=== PATIENT | female | born 1990 | race Hispanic/Latino ===

== ENCOUNTER 2024-10-04 05:21 | Emergency (ER) | payer SELFPAY ==
[~2024-10-04] VITALS: Ht 160 cm; Wt 99.8 kg
[2024-10-04 06:03] LABS: BASOPHILS # (AUTO) 0.01 K/uL (0.00-0.20); BASOPHILS % (AUTO) 0.1 % (0.0-5.0); EOSINOPHILS # (AUTO) 0.08 K/uL (0.00-0.70); EOSINOPHILS % (AUTO) 0.9 % (0.0-8.0); HEMATOCRIT 37.9 % (36-48); IMMATURE GRANULOCYTE ABSOLUTE 0.03 K/uL (0-1); LYMPHOCYTES # (AUTO) 1.8 K/uL (1.0-4.8); LYMPHOCYTES % (AUTO) 21.4 % (21.0-51.0); MEAN CORPUSCULAR HEMOGLOBIN 30.6 pg (27.0-33.0); MEAN CORPUSCULAR HGB CONC 36.1 g/dL (32.0-36.0); MEAN CORPUSCULAR VOLUME 84.6 fL (79-99); MONOCYTES # (AUTO) 0.4 K/uL (0.1-1.0); MONOCYTES % (AUTO) 4.4 % (3.0-13.0); NEUTROPHILS # (AUTO) 6.2 K/uL (1.8-7.7); NEUTROPHILS % (AUTO) 72.9 % (40.0-77.0); PLATELET COUNT (AUTO) 187 K/uL (130-400); RED BLOOD CELL COUNT(AUTO) 4.48 MIL/uL (4.00-5.50); RED CELL DISTRIBUTION WIDTH 12.6 % (11.0-15.5); WHITE BLOOD COUNT (AUTO) 8.6 K/uL (4.8-10.8)
--- NOTE | 2024-10-04 06:15 | ERN ---
General Chief Complaint: Chest Pain Stated Complaint: CHILLS; SOB, CHEST PAIN Time Seen by MD: 06:12 Source: patient History of Present Illness Initial Comments Patient reports a broad number of chief complaints the main one being chest tightness difficulty breathing and feeling cold. She has also had emesis x2 and knows that there is a stomach bug going through the family. She also is complaining of a little abdominal pain. Surprisingly no upper respiratory tract infections. Allergies: Coded Allergies: No Known Drug Allergies (Unverified Allergy, Unknown, 10/04/24) Past Medical History Past Medical History: No Pertinent History Past Surgical History: None Surgical History Other: NA Constitutional: (+) chills EENTM: (-) eye pain, (-) blurred vision, (-) tearing, (-) double vision, (-) ear pain, (-) ear discharge, (-) nose pain, (-) nose congestion, (-) throat pain, (-) Throat swelling, (-) mouth pain, (-) tooth pain, (-) mouth swelling, (-) other documentation Respiratory: (-) cough, (-) orthopnea, (-) short of breath, (-) stridor, (-) wheezing, (-) other documentation Cardiovascular: (-) chest pain, (-) edema, (-) palpitations, (-) syncope, (-) dyspnea on exertion, (-) other documentation Gastrointestinal/Abdominal: (+) nausea, (+) vomiting Genitourinary: (-) vaginal discharge, (-) vaginal bleeding, (-) dysuria, (-) frequency, (-) hematuria, (-) pain, (-) other documentation Musculoskeletal: (-) Neck pain, (-) back pain, (-) Flank Pain, (-) joint pain, (-) joint swelling, (-) muscle pain, (-) muscle stiffness, (-) gout, (-) other documentation Skin: (-) laceration, (-) contusion, (-) abrasion, (-) abscess, (-) rash, (-) change in color, (-) change in hair, (-) change in nails, (-) diaphoresis, (-) dryness, (-) other documentation Physical Exam General Appearance: (+) no apparent distress Orientation: (+) alert, (+) oriented x 3 Head/Face Trauma: No Eye: bilateral eye normal inspection, bilateral eye PERRL, bilateral eye EOMI Ear, Nose, Throat: (+) hearing grossly normal, (+) normal ENT inspection, (+) moist mucous membraine Neck: (+) normal inspection, (+) full range of motion Respiratory: (+) chest non-tender, (+) lungs clear Heart: (+) regular, (+) no gallop Vascular: (+) no edema, (+) normal peripheral pulse Gastrointestinal: (+) soft, (+) non-tender, (+) bowel sound present Results Laboratory and Microbiology Lab and Micro Result Laboratory Tests Test 10/04/24 05:46 10/04/24 06:33 White Blood Count 8.6 K/uL (4.8-10.8) Red Blood Count 4.48 MIL/uL (4.00-5.50) Hemoglobin 13.7 g/dL (12.0-16.0) Hematocrit 37.9 % (36-48) Mean Corpuscular Volume 84.6 fL (79-99) Mean Corpuscular Hemoglobin 30.6 pg (27.0-33.0) Mean Corpuscular Hemoglobin Concent 36.1 g/dL (32.0-36.0) H Red Cell Distribution Width 12.6 % (11.0-15.5) Platelet Count 187 K/uL (130-400) Mean Platelet Volume 9.6 fL (7.5-10.5) Immature Granulocyte % (Auto) 0.3 % (0-1) Neutrophils (%) (Auto) 72.9 % (40.0-77.0) Lymphocytes (%) (Auto) 21.4 % (21.0-51.0) Monocytes (%) (Auto) 4.4 % (3.0-13.0) Eosinophils (%) (Auto) 0.9 % (0.0-8.0) Basophils (%) (Auto) 0.1 % (0.0-5.0) Neutrophils # (Auto) 6.2 K/uL (1.8-7.7) Lymphocytes # (Auto) 1.8 K/uL (1.0-4.8) Monocytes # (Auto) 0.4 K/uL (0.1-1.0) Eosinophils # (Auto) 0.08 K/uL (0.00-0.70) Basophils # (Auto) 0.01 K/uL (0.00-0.20) Absolute Immature Granulocyte (auto 0.03 K/uL (0-1) Nucleated Red Blood Cells 0.0 % (0.0-0.19) Red Blood Cell Morphology See comments Sodium Level 135 mmol/L (136-145) L Potassium Level 3.9 mmol/L (3.5-5.1) Chloride Level 103 mmol/L (101-111) Carbon Dioxide Level 25 mmol/L (21-32) Blood Urea Nitrogen 14 mg/dL (7-18) Creatinine 0.6 mg/dL (0.5-1.0) Glomerular Filtration Rate Calc 121 mL/min (>90) Random Glucose 224 mg/dL (70-105) H Total Calcium 9.0 mg/dL (8.5-10.1) Troponin I High Sensitivity < 4 ng/L (4-50) L B-Type Natriuretic Peptide 16 pg/mL (0-100) Influenza Type A Antigen Negative For Type A Influenza Type B Antigen Negative For Type B SARS-CoV-2, RNA, NAAT NEGATIVE SARS CoV-2 Urine Color LIGHT-YELLOW (YELLOW) Urine Appearance CLEAR (CLEAR) Urine pH 5.5 (5.0-8.0) Urine Specific [place] 1.024 (1.001-1.031) Urine Protein NEGATIVE mg/dL (NEGATIVE) Urine Glucose (UA) >=1000 mg/dL (NEGATIVE) H Urine Ketones NEGATIVE mg/dL (NEGATIVE) Urine Occult Blood NEGATIVE (NEGATIVE) Urine Nitrate NEGATIVE (NEGATIVE) Urine Bilirubin NEGATIVE mg/dL (NEGATIVE) Urine Urobilinogen 0.2 mg/dL (0.2-1.0) Urine Leukocyte Esterase NEGATIVE [place]/uL Urine RBC 0-1 /HPF (0-1) Urine WBC 0-1 /HPF (0-1) Urine Squamous Epithelial Cells FEW /HPF (0-2) Urine Bacteria None /HPF (None Seen) Urine HCG, Qualitative NEGATIVE (NEGATIVE) Labs Reviewed?: Yes EKG/XRAY/US/CT/MRI EKG Comment 10/04/2024 time 5:43 a.m. Ventricular rate 76 Sinus rhythm [place] [address] wave elevation or depression X-RAY Comment Chest x-ray-small pulmonary infiltrate MDM A broad spectrum of symptoms that could all be related or caused by two different underlying disease processes. We have started a cardiac workup I will also pursue a urinary tract infection and give the patient some fluids as well as a GI cocktail. MDM: Differential diagnosis: GERD, NSTEMI, STEMI Rationale: Tests considered and ordered secondary to shared decision making include: Previous outside records reviewed: Old ER visits. Risk of complication and/or morbidity or mortality of patient management: None Medications-Per medication reconciliation Patient is a 32-year-old coming in with chest pressure. Laboratory workup negative for acute findings. Patient felt better with a GI cocktail. Patient will be discharged in stable condition with a diagnosis of GERD and URI. ED Course Orders Procedure Category Date Status Time Covid Rna Naat LAB 10/04/24 Complete 05:33 Influenza Type A & B, LAB 10/04/24 Complete Rapid 05:33 Cbc With Differential LAB 10/04/24 Complete 05:33 Basic Metabolic Panel LAB 10/04/24 Complete 05:33 12 Lead Ekg Tracing- EKG 10/04/24 Complete Technical 05:33 Chest 1vw RAD 10/04/24 Taken 05:33 Urinalysis Profile LAB 10/04/24 Complete 06:15 ,Urine Test LAB 10/04/24 Complete 06:15 Troponin I High LAB 10/04/24 Complete Sensitivity 06:15 B-Type Natriuretic LAB 10/04/24 Complete Peptide 06:15 Lactated Ringers PHA 10/04/24 Complete 1000ml (Lactated 06:15 Ondansetron 4mg Inj PHA 10/04/24 In Process (Zofran 4mg Inj) 08:00 Lidocaine Hcl 2% PHA 10/04/24 In Process Viscous (Lidocaine Hcl 08:00 Mag/Alum/Simeth 30ml PHA 10/04/24 In Process (Maalox Plus 30ml) 08:00 Pantoprazole 40mg Inj PHA 10/04/24 In Process (Protonix 40mg Inj 08:00 Current Medications Medications (Trade) Dose Ordered Sig/Paco Route PRN Reason Start Time Stop Time Status Last Admin Dose Admin Al Hydroxide/Mg Hydroxide (MAALox PLUS 30ML) 30 ml ONCE ONCE PO 10/04/24 08:00 10/04/24 08:01 Lactated Ringer's (Lactated Ringers 1000ml) 1,000 ml BOLUS STAT IV 10/04/24 06:15 10/04/24 06:31 DC 10/04/24 06:35 Lidocaine HCl (Lidocaine HCl 2% Viscous) 10 ml ONCE ONCE PO 10/04/24 08:00 10/04/24 08:01 Ondansetron HCl (zoFRAN 4MG INJ) 4 mg ONCE ONCE IVP 10/04/24 08:00 10/04/24 08:01 Pantoprazole Sodium (PROTonix 40MG INJ) 40 mg ONCE ONCE IVP 10/04/24 08:00 10/04/24 08:01 Vital Signs Date Time Temp Pulse Resp B/P (MAP) Pulse Ox O2 Delivery O2 Flow Rate FiO2 10/04/24 07:42 97.9 60 16 96/53 98 Room Air* 0 21 10/04/24 06:10 97.7 87 15 116/64 98 Room Air* 0 21 10/04/24 05:35 98.4 85 18 117/84 99 Room Air 0 10/04/24 05:35 98.4 84 18 117/84 98 Room Air* 0 21 DX & DISP Disposition: Discharge Departure Impression: Primary Impression: GERD (gastroesophageal reflux disease) Additional Impression: URI (upper respiratory infection) Condition: Stable Scripts Azithromycin (Azithromycin) 500 Mg Tablet 1 TAB PO DAILY for 5 Days, #5 TAB 0 Refills Prov: JOSELUIS BUSTILLO MD 10/04/24 Pantoprazole Sodium (Protonix) 40 Mg Ectab 1 TAB PO DAILY for 30 Days, #30 TAB 0 Refills Prov: JOSELUIS BUSTILLO MD 10/04/24 Additional Instructions: You have been reviewed in the emergency department at [facility] after presenting with chest pain. After considering your history, your risk factors, your EKG and your blood test troponins, have been found to be at very low risk less than (1 in 100) of having a major adverse cardiac event (like heart attack) in the near future. In the " low risk" group, the risks of doing further tests and treatment as the inpatient outweighs the benefits. In many patients in the low risk group for the test of any sort or unnecessary, however he should discuss this further with his general practitioner who will understand the medical and personal backgrounds better. Because we have never declared you" no risk" we would suggest. 1 returning for medical review if you have further episodes of chest pain/arm pain or other concerning symptoms like dizziness, collapse, palpitations or shortness of breath. 2. Following up with your local doctor who will consider the need for further testing and will also ensure that any modifiable risk factors you may have for heart disease are optimally managed. Patient will be discharged in stable condition at the moment discharge patient states , no chest pain Referrals: NONE (PCP) KELLI MATTHEWS MD Time of Disposition: 08:02 LENA SAUNDERS MD Oct 04, 2024 06:15 JOSELUIS BUSTILLO MD Oct 04, 2024 07:59
[2024-10-04 06:16] LABS: SARS-CoV-2, RNA, NAAT NEGATIVE SARS CoV-2 (NEGATIVE)
[2024-10-04 06:17] LABS: CREATININE 0.6 mg/dL (0.5-1.0); POTASSIUM 3.9 mmol/L (3.5-5.1)
[2024-10-04 06:22] LABS: INFLUENZA TYPE A Negative For Type A (NEGATIVE); INFLUENZA TYPE B Negative For Type B (NEGATIVE)
[2024-10-04] MEDS: LACTATED RINGERS 1000ML IV STA (06:35)
[2024-10-04 06:50] LABS: HCG,QUALITATIVE URINE NEGATIVE (NEGATIVE)
--- NOTE | 2024-10-04 06:53 | EKG ---
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
--- NOTE | 2024-10-04 07:04 | NUR ---
REPORT GIVEN TO BRUCE CARABALLO AT THIS TIME
[2024-10-04 07:09] LABS: APPEARANCE,URINE CLEAR (CLEAR); BILIRUBIN,URINE NEGATIVE (NEGATIVE); COLOR,URINE LIGHT-YELLOW (YELLOW); GLUCOSE, URINE (UA) >=1000 mg/dL (NEGATIVE); KETONES,URINE NEGATIVE (NEGATIVE); LEUKOCYTE ESTERASE ,URINE NEGATIVE Leu/uL (NEGATIVE); NITRATE,URINE NEGATIVE (NEGATIVE); OCCULT BLOOD,URINE NEGATIVE (NEGATIVE); PH,URINE 5.5 (5.0-8.0); PROTEIN,URINE NEGATIVE (NEGATIVE); UROBILINOGEN,URINE 0.2 mg/dL (0.2-1.0)
[2024-10-04 07:10] LABS: ADD UA MICROSCOPIC YES
[2024-10-04 07:11] LABS: MUCUS,URINE RARE LPF (None Seen); RBC,URINE 0-1 /HPF (0-1); SQUAMOUS EPITHELIAL CELL,UR FEW /HPF (0-2); WBC,URINE 0-1 /HPF (0-1)
[2024-10-04 07:42] VITALS: BP 96/53; PULSE 60; RESP 16; TEMP 97.8; O2SAT 98
[2024-10-04] MEDS ORDERED: AZIT500T4 PO (08:03)
[2024-10-04] MEDS ORDERED: PANT40TA55 PO (08:03)
[2024-10-04] MEDS: MAG/ALUM/SIMETH 30 ML UDCUP PO ONE (08:25)
[2024-10-04] MEDS: ondanSETRON 4MG INJ IVP ONE (08:25)
[2024-10-04] MEDS: LIDOCAINE HCL 2% VISCOUS 15 ML UDCUP PO ONE (08:25)
[2024-10-04] MEDS: PANTOPrazole 40 MG/VIAL IVP ONE (08:25)
--- NOTE | 2024-10-04 11:48 | HMCIMG ---
CHEST 1VW HISTORY: Chest pain COMPARISON: None FINDINGS: A frontal projection of the chest was obtained. Mild right lower lung pulmonary infiltrates are seen. The heart is borderline enlarged. No evidence of aortic calcification is seen. IMPRESSION: 1. Mild right lower lung pulmonary infiltrates.
== END 2024-10-04 09:07 | disposition home or self-care (01) ==
LOC: EDH 05:21
DX: K21.9 Gastro-esophageal reflux disease without esophagitis (principal); J06.9 Acute upper respiratory infection, unspecified; Z20.822 Contact with and (suspected) exposure to COVID-19
CPT/HCPCS: 99285; 96374; 96361; 71045; 87635; 96375; 84484; 80048; 83880; 85025; 87804 ×2; 81001; 81025; 36415; 93005; J7120; J2405; J2470